=== PATIENT | female | born 1950 | race Caucasian/White ===

== ENCOUNTER 2017-08-05 12:30 | Outpatient (CLI) | payer MEDICARE, BC ==
--- NOTE | 2017-08-05 17:43 | MRI ---
MRI THORACIC SPINE WITHOUT CONTRAST: 08/05/17 Multiplanar and multisequential imaging thoracic spine obtained. HISTORY: Injury to mid low back with pain. FINDINGS: There is an acute/subacute compression deformity involving the T12 vertebrae. There is mild wedging w ith loss of anterior height estimated at no more than 10%. There is slight retropulsion of the detective lieutenant ior superior corner of T12 into the spinal canal. There is edema within the T12 vertebra indicating a cute or subacute time frame. The other thoracic vertebrae maintain normal height and alignment. No other edema identified. No evid ence of disc bulge or disc protrusion at the other thoracic levels. At T11-T12, mild retropulsion of posterior superior corner of the T12 vertebra at the T11-T12 disc le funmilayo flattens the thecal sac and effaces the anterior subarachnoid space. No significant impingement o n the conus. The thoracic cord signal appears normal. IMPRESSION: Acute/subacute compression of the T12 vertebra with mild anterior wedging. Anterior height loss is es timated at 10%. There is slight retropulsion of the posterior superior corner of T1 which effaces the anterior subarachnoid space without significant impingement on the conus. POS: [facility]
== END 2017-08-05 12:31 | disposition home or self-care (01) ==
LOC: SCSMRI 12:30
PROVIDERS: ATTEND Anesthesiology Pain Medicine
DX: S22.000A Wedge compression fracture of unspecified thoracic vertebra, initial encounter for closed fracture (principal)
CPT/HCPCS: 72146